=== PATIENT | female | born 1980 | race Caucasian/White ===

== ENCOUNTER → 2016-09-19 | Outpatient (REF) | payer OTHER ==
[~2016-09-19] MED LIST: COLA50CA3 PO; IBUP80TA PO; IRON325T3 PO; PERCOCET PO
== END ==
LOC: M LAB REF 11:30
PROVIDERS: ATTEND Specialist
DX: R87.612 Low grade squamous intraepithelial lesion on cytologic smear of cervix (LGSIL) (principal)

== ENCOUNTER → 2017-06-30 | Outpatient (REF) | payer OTHER | LOC: M LAB REF 17:11 | PROVIDERS: ATTEND Specialist | DX: R87.612 Low grade squamous intraepithelial lesion on cytologic smear of cervix (LGSIL) (principal) ==

== ENCOUNTER → 2018-11-03 | Outpatient (REF) | payer OTHER | LOC: M LAB REF 13:20 | PROVIDERS: ATTEND Specialist | DX: Z12.4 Encounter for screening for malignant neoplasm of cervix (principal); N87.0 Mild cervical dysplasia; R87.613 High grade squamous intraepithelial lesion on cytologic smear of cervix (HGSIL) ==

== ENCOUNTER → 2019-01-06 | Outpatient (CLI) | payer OTHER ==
[~2019-01-06] MED LIST changes: +OXYC1TAB23 PO; -PERCOCET PO
--- NOTE | 2019-01-06 10:28 | REPMRS ---
Patient History Patient had first child at age 31. Family history of breast cancer in maternal aunt, breast cancer at age 57 in mother, pancreatic cancer in maternal grandmother. Cyst biopsy 2010. Ultrasound at [facility] in 2010. 3D TOMOSYNTHESIS WAS PERFORMED. Digital Mammo Screening Bilat: January 06, 2019 - Exam #: [id number] Bilateral CC and MLO view(s) were taken. Technologist: Shaye Brown, Technologist No prior studies available for comparison. FINDINGS: The breast tissue is extremely dense which could obscure a lesion on mammography. There is no evidence of cancer on this mammogram. Assessment: BI-RADS/ACR category 2 mammogram. Benign Findings. Recommendation Routine screening mammogram of both breasts in 1 year (for women over age 40). This mammogram was interpreted with the aid of an FDA-approved computer-aided dectection system. THE LIFETIME RISK OF BREAST CANCER IS 33.2%, THEREFORE SUPPLEMENTAL SCREENING MRI OF THE BREASTS IS RECOMMENDED IN 6 MONTHS. Electronically Signed By: Duc Martínez MD 01/06/19 [id number]
== END ==
LOC: M RAD 08:58
PROVIDERS: ATTEND Specialist
DX: Z12.31 Encounter for screening mammogram for malignant neoplasm of breast (principal); Z80.3 Family history of malignant neoplasm of breast

== ENCOUNTER → 2019-02-04 | Outpatient (REF) | payer OTHER | LOC: M LAB REF 17:10 | PROVIDERS: ATTEND Specialist | DX: R87.613 High grade squamous intraepithelial lesion on cytologic smear of cervix (HGSIL) (principal) ==

== ENCOUNTER → 2019-03-22 | Outpatient (REF) | payer OTHER | LOC: M LAB REF 19:17 | PROVIDERS: ATTEND Specialist | DX: R87.613 High grade squamous intraepithelial lesion on cytologic smear of cervix (HGSIL) (principal) ==

== ENCOUNTER → 2020-07-12 | Outpatient (REF) | payer OTHER | LOC: M SFHCWAGY 09:48 | PROVIDERS: ATTEND Specialist | DX: R87.612 Low grade squamous intraepithelial lesion on cytologic smear of cervix (LGSIL) (principal) ==

== ENCOUNTER → 2021-03-19 | Outpatient (CLI) | payer OTHER | LOC: M LABSMTC 09:25 | PROVIDERS: ATTEND Anesthesiology | DX: Z01.818 Encounter for other preprocedural examination (principal); Z11.52 Encounter for screening for COVID-19 ==

== ENCOUNTER 2021-03-23 06:08 | Day surgery (SDC) | payer OTHER ==
[~2021-03-23] VITALS: Ht 172.7 cm; Wt 68.0 kg
[~2021-03-23 06:08] MED LIST changes: +LR 1,000 ML IV ONE; +ceFAZolin SOD 2 GM in IV 1 EA IV ONE
[2021-03-23 06:43] LABS: HEMATOCRIT 50.4 % (36.0-47.0); HEMOGLOBIN 17.2 g/dl (12.0-15.5); MEAN CORPUSCULAR HEMOGLOBIN 31.9 pg (27.0-33.0); MEAN CORPUSCULAR HGB CONC 34.1 g/dl (32.0-36.5); MEAN CORPUSCULAR VOLUME 93.3 fl (80.0-96.0); PLATELET COUNT, AUTOMATED 241 10^3/uL (150-450); WHITE BLOOD COUNT 13.3 10^3/uL (4.0-10.0)
[2021-03-23] MEDS ORDERED: LIDOCAINE 2% 100MG/5ML SDV (FOR ANES.) As Ordered ONE (07:11)
[2021-03-23] MEDS ORDERED: HYDROmorphone HCL 2 MG/ML 1ML VIAL (J1170) As Ordered ONE (07:11)
[2021-03-23] MEDS ORDERED: ROCURONIUM BROMIDE 50 MG/5 ML VIAL As Ordered ONE ×2 (07:11→08:01)
[2021-03-23] MEDS ORDERED: ACETAMINOPHEN 1000MG 100ML IV BTL (OFIRMEV) (J0131 PER 10MG) As Ordered ONE (07:11)
[2021-03-23] MEDS ORDERED: dexameTHASONE 4 MG/ML 1ML VIAL (J1100 PER 1MG) As Ordered ONE (07:11)
[2021-03-23] MEDS ORDERED: MIDAZOLAM INJ 2MG/2ML VIAL (J2250 PER 1MG) As Ordered ONE (07:11)
[2021-03-23] MEDS ORDERED: ONDANSETRON 4MG/2ML VIAL As Ordered ONE (07:11)
[2021-03-23] MEDS ORDERED: KETOROLAC 60MG 2ML VIAL As Ordered ONE (07:11)
[2021-03-23] MEDS ORDERED: fentaNYL 100 MCG/2 ML INJECTION (J3010) As Ordered ONE (07:11)
[2021-03-23] MEDS ORDERED: propofoL 200 MG/20 ML VIAL As Ordered ONE (07:11)
[2021-03-23] MEDS ORDERED: BUPIVACAINE HCL 0.25% 10ML VIAL As Ordered ONE (07:13)
[2021-03-23] MEDS ORDERED: SUGAMMADEX SODIUM 500 MG/5 ML VIAL (BRIDION) As Ordered ONE (07:53)
[2021-03-23] MEDS ORDERED: LABETALOL 100MG/20ML VIAL As Ordered ONE (08:17)
[2021-03-23] MEDS ORDERED: DOCUSATE SODIUM 100MG CAPSULE PO SCH (09:00)
--- NOTE | 2021-03-23 09:05 | ROOPDOC ---
[facility] Report Of Operation Report of Operation DATE OF PROCEDURE: 03/23/21 OPERATIVE REPORT: Preoperative diagnosis: Menorrhagia, severe cervical dysplasia. Postoperative diagnosis: Same. Procedure: Robotic-assisted laparoscopic hysterectomy, bilateral salpingectomy, cystoscopy. Surgeon: Ada Quinteros M.D. Store Clerk Checker: Alyson Mcguire NP Findings: Normal uterus, fallopian tubes, ovaries. Evidence of prior tubal sterilization. Omental adhesions to the right pelvic sidewall. Normal upper abdomen including liver, stomach, gallbladder EBL: 50 mL's. Urine output: 100 mL's. Operative summary: Patient was taken to the operating room where general endotracheal anesthesia was induced. She was prepped and draped in sterile fashion in the dorsal lithotomy position. A Velazquez Catheter was placed. A V care uterine manipulator was placed. A Periumbilical incision was made with a scalpel. . A Veress needle was placed through this incision. Intra-abdominal location of Veress needle was assessed with saline filled syringe. A pneumoperitoneum was created. The Veress needle was removed. An 8 mm trocar usi ng the Visiport was inserted through this incision. Three 8 mm suprapubic ports were placed under direct visualization The patient was placed in Trendelenburg position. The da Bernie surgical robot was docked to the ports. Using the fenestrated bipolar instrument and vessel sealer, utero-ovarian ligaments, fallopian tubes, and broad ligaments were coagulated and incised. The round l igaments were coagulated and incised. The anterior and posterior leaves of the broad ligament were . Bladder flap was created. The uterine vessels were coagulated and incised using monopolar Endo Que. A colpotomy was created in the upper vagina at the level of the V care Cup. The specimen including the uterus, cervix, and fallopian tubes was removed through the vagina. The vaginal cuff was closed with #1 V lock suture in running fashion. All instruments removed. The skin was closed with 4-0 Monocryl subcuticular sutures. Alyson Mcguire NP assisted with all aspects of the procedure. She helped position the patient. She helped insert the ports and manipulate the uterus. She removed the specimen. ADA QUINTEROS MD Mar 23, 2021 09:05
[2021-03-23] MEDS ORDERED: MEPERIDINE INJ 25 MG/ML VIAL (J2175) IV PRN (09:10)
[2021-03-23] MEDS ORDERED: fentaNYL 100 MCG/2 ML INJECTION (J3010) IV PRN (09:10)
[2021-03-23] MEDS ORDERED: LR 1,000 ML IV SCH ×2 (09:10→10:25)
[2021-03-23] MEDS ORDERED: ONDANSETRON 4MG/2ML VIAL IV PRN ×2 (09:10→10:25)
[2021-03-23] MEDS ORDERED: OXYC1TAB23 PO (09:16)
[2021-03-23] MEDS: oxyCODONE 5MG TAB PO PRN ×2 (09:18→10:05)
[2021-03-23] MEDS ORDERED: IBUP-1022 PO (09:18)
[2021-03-23 10:50] VITALS: BP 112/76
[2021-03-23 11:20] VITALS: BP 111/76
[2021-03-23] MEDS ORDERED: KETOROLAC 30 MG/ML 1ML VIAL IV PRN (12:10)
[2021-03-23] MEDS ORDERED: MORPHINE 4 MG/ML 1ML VIAL/SYRINGE (J2270) IV PRN (12:10)
[2021-03-23] MEDS ORDERED: PERCOCET 5MG/325MG TAB PO PRN ×2 (12:10)
[2021-03-23 12:20] VITALS: BP 111/75
[2021-03-23 13:20] VITALS: BP 115/77
== END 2021-03-23 15:05 | disposition home or self-care (01) ==
LOC: M SDC 06:08 → M MS5PR 10:41 → M SDC 15:05
PROVIDERS: ATTEND Specialist
DX: N87.0 Mild cervical dysplasia (principal); N73.6 Female pelvic peritoneal adhesions (postinfective); F17.218 Nicotine dependence, cigarettes, with other nicotine-induced disorders
CPT/HCPCS: 36415; 58570; 81025; 85027; 86850; 86900; 86901; 88307; J0131; J0690; J1100; J1170; J1885; J2250; J2405; J3010; S2900